=== PATIENT | female | born 1960 | race Caucasian/White ===

== ENCOUNTER → 2017-05-22 | Outpatient (CLI) | payer BC ==
--- NOTE | 2017-05-22 10:23 | XR ---
EXAMINATION TYPE: XR KUB DATE OF EXAM: 05/22/2017 10:13 AM CLINICAL HISTORY: Left-sided pain and history of nephrolithiasis. TECHNIQUE: Single supine KUB image of the abdomen is obtained. COMPARISON: None. FINDINGS: Scattered gas is seen in non-distended small bowel loops. Gas and fecal material is seen in non-distended colon. There is no visceromegaly or abnormal calcifications to suggest nephrolithiasis . The lung bases are clear and the osseous structures are intact. Degenerative changes are appreciate d of L4-5 and L5-S1 with transitional vertebrae at L5 bilaterally. Mild degenerative changes of the f emoral acetabular joints are also seen. IMPRESSION: 1. No radiopaque calculi to suggest nephrolithiasis. 2. Nonobstructive bowel gas pattern.
== END | disposition home or self-care (01) ==
LOC: RADXRMAIN 10:00
PROVIDERS: ATTEND Physician Assistant
DX: N20.0 Calculus of kidney (principal)
CPT/HCPCS: 74000

== ENCOUNTER → 2019-05-27 | Outpatient (CLI) | payer BC ==
--- NOTE | 2019-05-30 10:23 | MM ---
Reason for exam: screening (asymptomatic). Last mammogram was performed 1 year and 1 month ago. History: Patient is postmenopausal. Family history of breast cancer in mother and breast cancer in maternal grandmother. Physical Findings: A clinical breast exam by your physician is recommended on an annual basis and results should be correlated with mammographic findings. MG 3D Screening Mammo W/Cad Bilateral CC and MLO view(s) were taken. Prior study comparison: April 22, 2018, mammogram. April 16, 2018, mammogram. April 03, 2017, mammogram. March 26, 2017, mammogram. There are numerous bilateral masses. Ultrasound will be utilized to characterize these on the left and in the right upper outer quadrant. ASSESSMENT: Incomplete: need additional imaging evaluation, BI-RAD 0 RECOMMENDATION: Ultrasound of both breasts. [facility] will attempt to contact patient to return for ultrasound.
== END | disposition home or self-care (01) ==
LOC: RADMAMWWP 07:51
PROVIDERS: ATTEND Family Medicine
DX: Z12.31 Encounter for screening mammogram for malignant neoplasm of breast (principal)
CPT/HCPCS: 77063; 77067

== ENCOUNTER → 2019-06-10 | Outpatient (CLI) | payer BC ==
--- NOTE | 2019-06-10 09:15 | USB ---
Reason for exam: additional evaluation requested from abnormal screening. History: Patient is postmenopausal. Family history of breast cancer in mother and breast cancer in maternal grandmother. Physical Findings: Nurse did not find any significant physical abnormalities on exam. US Breast Workup Limited UMESH Right limited breast ultrasound including focal area of concern, retroareolar and axilla demonstrates a 0.4 x 0.4 x 0.6cm mixed, complicated cyst with enhancement at 9 o'clock, a 0.4 x 0.3 x 0.4cm lesion too small to characterize at 10 o'clock, cyst in dense tissue, a 0.4 x 0.3 x 0.4cm lesion too small to characterize at 12 o'clock, cyst with retracted clot versus less likely papilloma, 6 month follow up recommended and a 0.5 x 0.3 x 0.4cm solid lesion at 12 o'clock probable complicated cyst, 6 month follow up recommended. Left limited breast ultrasound including focal area of concern, retroareolar and axilla demonstrates a 0.6 x 0.5 x 0.5cm mixed lesion at 1 o'clock, 6 month follow up recommended, a 0.5 x 0.4 x 0.4cm lesion too small to characterize at 2 o'clock, a 0.7 x 0.5 x 0.8cm mixed lesion at 4 o'clock, a 0.6 x 0.6 x 0.8cm mixed lesion at 5 o'clock, 6 month follow up recommended, possibly clusters, a 0.4 x 0.5 x 0.5cm mixed lesion at 6 o'clock and a 0.7 x 0.4 x 0.6cm mixed lesion at 10 o'clock. These results were verbally communicated with the patient and result sheet given to the patient on 06/10/19. ASSESSMENT: Probably benign, BI-RAD 3 RECOMMENDATION: Ultrasound of both breasts in 6 months. 6 month follow up targeted attention 12 o'clock and attention 5 o'clock left breast, 1 o'clock on right breast.
== END | disposition home or self-care (01) ==
LOC: RADUSWWP 06:59
PROVIDERS: ATTEND Family Medicine
DX: R92.8 Other abnormal and inconclusive findings on diagnostic imaging of breast (principal)

== ENCOUNTER → 2019-12-16 | Outpatient (CLI) | payer BC ==
--- NOTE | 2019-12-16 12:02 | USB ---
Reason for exam: follow-up at short interval from prior study. History: Patient is postmenopausal. Family history of breast cancer in mother and breast cancer in maternal grandmother. Physical Findings: Nurse Summary: 1cm nodule in the left breast at 9 o'clock (nurse mj). US Breast Limited BILAT Right limited breast ultrasound including focal area of concern, retroareolar and axilla demonstrates a 0.4 x 0.4 x 0.4cm round, complex, cystic lesion at 10 o'clock, a 0.3 x 0.3 x 0.3cm oval, complex, cystic lesion at 12 o'clock and a 2.0 x 1.0 x 0.9cm lymph node at the axilla. Left limited breast ultrasound including focal area of concern, retroareolar and axilla demonstrates a 0.8 x 0.5 x 0.3cm oval, cystic cluster at 1 o'clock, a 0.4 x 0.8 x 0.6cm complex, cystic cluster at 3 o'clock, a 0.4 x 0.5 x 0.3cm cystic cluster at 5 o'clock, no mass seen at 9 o'clock BB, a 0.6 x 0.3 x 0.3cm complex, cystic lesion at 11 o'clock and nodes at the axilla. Difficult to asses whether these masses are the same as on the prior however today they all appear cystic and benign. These results were verbally communicated with the patient and result sheet given to the patient on 12/16/19. ASSESSMENT: Benign, BI-RAD 2 RECOMMENDATION: Return to routine screening mammogram schedule for both breasts. Back on schedule for May 2020.
== END | disposition home or self-care (01) ==
LOC: RADUSWWP 09:35
PROVIDERS: ATTEND Family Medicine
DX: R92.8 Other abnormal and inconclusive findings on diagnostic imaging of breast (principal)

== ENCOUNTER → 2021-03-22 | Outpatient (CLI) | payer BC ==
--- NOTE | 2021-03-25 14:49 | MM ---
Reason for exam: screening (asymptomatic). Last mammogram was performed 1 year and 10 months ago. History: Patient is postmenopausal. Family history of breast cancer in mother at age 80 and breast cancer in maternal grandmother at age 90. Cyst aspiration. Physical Findings: A clinical breast exam by your physician is recommended on an annual basis and results should be correlated with mammographic findings. MG 3D Screening Mammo W/Cad Bilateral CC and MLO view(s) were taken. Prior study comparison: May 27, 2019, bilateral MG 3d screening mammo w/cad. April 16, 2018, mammogram. There are scattered fibroglandular densities. ASSESSMENT: Negative, BI-RAD 1 RECOMMENDATION: Routine screening mammogram of both breasts in 1 year.
== END | disposition home or self-care (01) ==
LOC: RADMAMWWP 16:24
PROVIDERS: ATTEND Family Medicine
DX: Z12.31 Encounter for screening mammogram for malignant neoplasm of breast (principal); Z78.0 Asymptomatic menopausal state; Z80.3 Family history of malignant neoplasm of breast
CPT/HCPCS: 77063; 77067

== ENCOUNTER → 2022-03-28 | Outpatient (CLI) | payer BC ==
--- NOTE | 2022-03-29 10:45 | CA ---
Transthoracic Echo Report Name: So York Age: 61 Gender: F : 1960 Exam Date: 03/28/2022 15:03 Exam Location: [place] [facility] Ht (in): 65 Wt (lb): 225 Ordering Physician: Marcelino Maurice MD Attending/Referring Phys: Blaire Navarro [facility] Security Attendant Jenny Suarez RDCS Procedure CPT: Indications: I10 HTN Cardiac Hx: Technical Quality: Good Contrast 1: Total Dose (mL): Contrast 2: Total Dose (mL): MEASUREMENTS (Male / Female) Normal Values 2D ECHO LV Diastolic Diameter PLAX 3.0 cm 4.2 - 5.9 / 3.9 - 5.3 cm LV Systolic Diameter PLAX 1.2 cm IVS Diastolic Thickness 1.2 cm 0.6 - 1.0 / 0.6 - 0.9 cm LVPW Diastolic Thickness 1.3 cm 0.6 - 1.0 / 0.6 - 0.9 cm LV Relative Wall Thickness 0.8 LA Volume 26.8 cm??? 18 - 58 / 22 - 52 cm??? M-MODE Aortic Root Diameter MM 2.9 cm LA Systolic Diameter MM 2.9 cm LA Ao Ratio MM 1.0 MV E Point Septal Separation 1.7 cm AV Cusp Separation MM 1.7 cm DOPPLER AV Peak Velocity 135.3 cm/s AV Peak Gradient 7.3 mmHg MV Area PHT 3.5 cm??? Mitral E Point Velocity 66.4 cm/s Mitral A Point Velocity 72.3 cm/s Mitral E to A Ratio 0.9 MV Deceleration Time 217.2 ms MV E' Velocity 8.1 cm/s Mitral E to MV E' Ratio 8.2 FINDINGS Left Ventricle Mildly increased septal wall thickness. Moderately increased posterior wall thickness. Left ventricular ejection fraction is estimated at 55-60 left ventricular cavity size normal. %. Right Ventricle The right ventricle is normal in size and function. Right Atrium The right atrium is normal in size. Left Atrium The left atrium is normal in size. Mitral Valve Structurally normal mitral valve without significant stenosis or prolapse. There is a trace of mitral regurgitation. Aortic Valve Structurally normal aortic valve without significant sclerosis or stenosis. There is no aortic regurgitation. Tricuspid Valve Structurally normal tricuspid valve without significant stenosis. Pulmonary artery systolic pressure is normal. Trace tricuspid regurgitation. Pulmonic Valve Structurally normal pulmonic valve without significant stenosis. There is no pulmonic regurgitation. Pericardium Normal pericardium without effusion. Aorta Normal aortic root dimension. CONCLUSIONS #1. Concentric left ventricular hypertrophy with preserved LV function. #2. Trace mitral and tricuspid regurgitation Previewed by: Dr. Parmjit Shoemaker MD (Electronically Signed) Final Date: 29 March 2022 10:44
--- NOTE | 2022-03-31 14:27 | MM ---
Reason for Exam: Screening (asymptomatic). Last screening mammogram was performed 12 month(s) ago. Patient History: Menarche at age 17. First Full-Term at age 28. Postmenopausal. Cyst Aspiration. Maternal grandmother had breast cancer, age 90. Mother had breast cancer, age 80. Risk Values: Earnestine 5 year model risk: 2.7%. NCI Lifetime model risk: 12.4%. Prior Study Comparison: 04/22/2018 Screening Mammogram, Unknown. 05/27/2019 Bilateral Screening Mammogram, [facility]. 03/22/2021 Bilateral Screening Mammogram, [facility]. Tissue Density: The breast tissue is heterogeneously dense. This may lower the sensitivity of mammography. Findings: Analyzed By CAD. There is no suspicious group of microcalcifications or new suspicious mass in either breast. Overall Assessment: Negative, BI-RAD 1 Management: Screening Mammogram of both breasts in 1 year. 1. Patient should continue monthly self breast exams. 2. A clinical breast exam by your physician is recommended on an annual basis. 3. This exam should not preclude additional follow-up of suspicious palpable abnormalities. Electronically signed and approved by: Jensen Hartley M.D. Radiologist
== END | disposition home or self-care (01) ==
LOC: RADECHMAIN 14:57
PROVIDERS: ATTEND Family Medicine
DX: Z12.31 Encounter for screening mammogram for malignant neoplasm of breast (principal); I10 Essential (primary) hypertension; Z78.0 Asymptomatic menopausal state; Z80.3 Family history of malignant neoplasm of breast
CPT/HCPCS: 77063; 77067; 93306

== ENCOUNTER → 2023-05-08 | Outpatient (CLI) | payer BC ==
--- NOTE | 2023-05-11 08:16 | MM ---
Reason for Exam: Screening (asymptomatic). Last mammogram was performed 1 year(s) and 2 month(s) ago. Patient History: Menarche at age 17. First Full-Term at age 28. Postmenopausal. Cyst Aspiration. Maternal grandmother had breast cancer, age 90. Mother had breast cancer, age 80. Risk Values: Earnestine 5 year model risk: 2.7%. NCI Lifetime model risk: 12.1%. Prior Study Comparison: 05/27/2019 Bilateral Screening Mammogram, [facility]. 03/22/2021 Bilateral Screening Mammogram, [facility]. 03/28/2022 Bilateral MG 3D screening mammo w/cad, [facility]. Tissue Density: The breast tissue is heterogeneously dense. This may lower the sensitivity of mammography. Findings: Analyzed By CAD. There is no suspicious group of microcalcifications or new suspicious mass in either breast. Overall Assessment: Negative, BI-RAD 1 Management: Screening Mammogram of both breasts in [address] [facility] will attempt to contact patient to return for supplemental views and ultrasound if indicated. Patient should continue monthly self-breast exams. A clinical breast exam by your physician is recommended on an annual basis. This exam should not preclude additional follow-up of suspicious palpable abnormalities. Note on Earnestine scores and lifetime risk: 1. A Earnestine score greater than 3% is considered moderate risk. If this is the case, consider specialist referral to assess eligibility for a risk reducing agent. 2. If overall lifetime risk for the development of breast cancer is 20% or higher, the patient may qualify for future screening with alternating mammogram and breast MRI. Electronically signed and approved by: Darshan Arevalo DO
== END | disposition home or self-care (01) ==
LOC: RADMAMWWP 07:51
PROVIDERS: ATTEND Family Medicine
DX: Z12.31 Encounter for screening mammogram for malignant neoplasm of breast (principal); Z78.0 Asymptomatic menopausal state; Z80.3 Family history of malignant neoplasm of breast
CPT/HCPCS: 77063; 77067

== ENCOUNTER → 2024-05-27 | Outpatient (CLI) | payer BC ==
--- NOTE | 2024-06-13 18:34 | MM ---
Reason for Exam: Screening (asymptomatic). Last screening mammogram was performed 12 month(s) ago. Patient History: Menarche at age 17. First Full-Term at age 28. Postmenopausal. Cyst Aspiration. Maternal grandmother had breast cancer, age 90. Mother had breast cancer, age 80. Risk Values: Earnestine 5 year model risk: 2.8%. NCI Lifetime model risk: 11.7%. Prior Study Comparison: 04/16/2018 Screening Mammogram, Unknown. 04/22/2018 Screening Mammogram, Unknown. 05/27/2019 Bilateral Screening Mammogram, [facility]. 03/22/2021 Bilateral Screening Mammogram, [facility]. 03/28/2022 Bilateral MG 3D screening mammo w/cad, [facility]. 05/08/2023 Bilateral MG 3D screening mammo w/cad, [facility]. Tissue Density: The breasts are heterogeneously dense, which may obscure small masses. Findings: Analyzed By CAD. Underlying chronic nodularity on both sides, subareolar right cc view and lateral left CC view. There is no suspicious group of microcalcifications or new suspicious mass in either breast. Overall Assessment: Benign, BI-RAD 2 Management: Screening Mammogram of both breasts in 1 year. . Patient should continue monthly self-breast exams. A clinical breast exam by your physician is recommended on an annual basis. This exam should not preclude additional follow-up of suspicious palpable abnormalities. Note on Earnestine scores and lifetime risk: 1. A Earnestine score greater than 3% is considered moderate risk. If this is the case, consider specialist referral to assess eligibility for a risk reducing agent. 2. If overall lifetime risk for the development of breast cancer is 20% or higher, the patient may qualify for future screening with alternating mammogram and breast MRI. Electronically signed and approved by: Jensen Hartley M.D. Radiologist
== END | disposition home or self-care (01) ==
LOC: RADMAMWWP 08:45
PROVIDERS: ATTEND Family Medicine
DX: Z12.31 Encounter for screening mammogram for malignant neoplasm of breast (principal); Z78.0 Asymptomatic menopausal state; Z80.3 Family history of malignant neoplasm of breast
CPT/HCPCS: 77067